=== PATIENT | female | born 1990 | race African-American/Black ===

== ENCOUNTER 2017-06-27 10:55 | Emergency (ER) | payer OTHER ==
[~2017-06-27] VITALS: Wt 77.1 kg
[~2017-06-27 10:55] MED LIST: FLEXERIL5 MG PO; IBU-6600 MG PO; MOTRIN 800 MG E4 TAB PO; NORTREL 35 MCG-1 TAB PO; PRENATAL1 TA1 PO; TRAMADOL HCL50 MG PO; ZOFRAN ODT4 MG SL
[2017-06-27 11:02] VITALS: BP 147/92
[2017-06-27 12:29] LABS: BILIRUBIN NEGATIVE (NEGATIVE); BLOOD 2+ (NEGATIVE); CLARITY CLEAR (CLEAR); COLOR YELLOW (YELLOW); GLUCOSE NEGATIVE (NEGATIVE); KETONE NEGATIVE (NEGATIVE); LEUKO ESTERASE NEGATIVE (NEGATIVE); NITRITE NEGATIVE (NEGATIVE); SPECIFIC GRAVITY >= 1.030 (1.005-1.030)
[2017-06-27 12:41] LABS: BACTERIA 1+; EPITHELIAL CELLS 16-20
[2017-06-27 12:42] LABS: MUCOUS 1+
== END 2017-06-27 13:41 | disposition home or self-care (01) ==
LOC: ED 10:55
PROVIDERS: Nurse Practitioner Family
DX: Z20.2 Contact with and (suspected) exposure to infections with a predominantly sexual mode of transmission (principal); Z79.899 Other long term (current) drug therapy; Z88.1 Allergy status to other antibiotic agents